=== PATIENT | female | born 1965 | race Two or more races ===

== ENCOUNTER → 2016-07-09 | Outpatient (CLI) | payer OTHER | END | disposition home or self-care (01) | LOC: CFH 13:00 | PROVIDERS: ATTEND Internal Medicine | DX: M50.321 Other cervical disc degeneration at C4-C5 level (principal); M50.322 Other cervical disc degeneration at C5-C6 level; M50.323 Other cervical disc degeneration at C6-C7 level; M48.02 Spinal stenosis, cervical region; M25.521 Pain in right elbow; M40.292 Other kyphosis, cervical region; M25.78 Osteophyte, vertebrae | CPT/HCPCS: 72141 ==